=== PATIENT | male | born 1945 | race Caucasian/White ===

== ENCOUNTER 2019-03-16 09:13 | Emergency (ER) | payer MEDICARE, BC ==
[2019-03-16 09:38] VITALS: RESP 14; TEMP 97.7
[2019-03-16] MEDS ORDERED: DIAZEPAM 5 MG TAB PO ONE (10:03)
[2019-03-16] MEDS ORDERED: APAP/HYDROCODONE 325/7.5 TAB PO ONE (10:05)
[2019-03-16] MEDS ORDERED: DIAZEPAM 5 MG TAB ONE (10:06)
[2019-03-16] MEDS ORDERED: APAP/HYDROCODONE 1 EACH TABLET ONE (10:07)
[2019-03-16 11:28] VITALS: PULSE 72; O2SAT 96
[2019-03-16 12:25] VITALS: BP 136/85
== END 2019-03-16 13:37 | disposition home or self-care (01) | DRG 552 ==
LOC: ED 09:13
DX: S32.010A Wedge compression fracture of first lumbar vertebra, initial encounter for closed fracture (principal); M62.830 Muscle spasm of back
CPT/HCPCS: 72131; 99283; A9270-GY

== ENCOUNTER 2019-03-19 08:10 | Emergency (ER) | payer MEDICARE, BC ==
[2019-03-19] MEDS ORDERED: FENTANYL 100MCG/2ML SOL IV ONE (08:42)
[2019-03-19] MEDS ORDERED: ONDANSETRON HCL 4 MG/2 ML SOL IV ONE (08:42)
[2019-03-19] MEDS ORDERED: ONDANSETRON HCL 4 MG/2 ML SOL ONE (08:48)
[2019-03-19] MEDS ORDERED: FENTANYL 100MCG/2ML SOL ONE (08:48)
[2019-03-19 09:02] LABS: BASOPHILS % (AUTO) 1 % (0-3); EOSINOPHILS % (AUTO) 5 % (0-9); HEMATOCRIT 42 % (39-53); HEMOGLOBIN 14.1 gm/dl (13.5-17.7); LYMPHOCYTES % (AUTO) 20.6 % (10-50); MEAN CORPUSCULAR HEMOGLOBIN 31.1 pg (27.0-32.0); MEAN CORPUSCULAR HGB CONC 33.4 gm/dl (32.0-36.0); MEAN CORPUSCULAR VOLUME 93 fL (80-100); MONOCYTES % (AUTO) 7.6 % (0-12); NEUTROPHILS % (AUTO) 65.8 % (37-80)
[2019-03-19 09:17] LABS: ALBUMIN 2.9 gm/dl (3.4-5.0); BILIRUBIN,TOTAL 0.4 mg/dl (0.2-1.0); CALCIUM 8.7 mg/dl (8.5-10.1); CREATININE 0.9 mg/dl (0.80-1.30); POTASSIUM 4.5 mMol/L (3.5-5.1); TOTAL PROTEIN 6.8 gm/dl (6.4-8.2)
[2019-03-19 09:23] LABS: CARBON DIOXIDE 27.9 mEq/L (21-32)
[2019-03-19 10:20] LABS: APPEARANCE,URINE Slightly Cloudy; BILIRUBIN,URINE NEGATIVE (NEGATIVE); COLOR,URINE Yellow; GLUCOSE, URINE (UA) NEGATIVE (NEGATIVE); KETONES,URINE NEGATIVE (NEGATIVE); LEUKOCYTE ESTERASE ,URINE NEGATIVE (NEGATIVE); NITRATE,URINE NEGATIVE (NEGATIVE); OCCULT BLOOD,URINE NEGATIVE (NEG-TRACE); PH,URINE 7.5
[2019-03-19 10:35] LABS: BACTERIA 1+ (< 1+); CRYSTALS 1+ (0-3 AVE/HPF); EPITHELIAL CELLS 0-1 (SQUAMOUS); RBC,URINE 0-1 (0-3AV/HPF); WBC,URINE 0-2 (0-5AV/HPF)
[2019-03-19] MEDS ORDERED: OXYCODONE HYDROCHLORIDE 5 MG TAB PO PRN (10:44)
[2019-03-19] MEDS ORDERED: OXYCODONE HYDROCHLORIDE 5 MG TAB ONE (10:51)
[2019-03-19 11:05] VITALS: BP 154/91; PULSE 76; RESP 18; O2SAT 96
== END 2019-03-19 10:58 | disposition home or self-care (01) | DRG 561 ==
LOC: ED 08:10
DX: S32.019D Unspecified fracture of first lumbar vertebra, subsequent encounter for fracture with routine healing (principal)
CPT/HCPCS: 80053; 81001; 85025; 96374; 96375; 99283; 99284; J2405; J3010; A9270-GY

== ENCOUNTER 2019-04-05 14:00 | Day surgery (SDC) | payer MEDICARE, BC ==
[2019-04-05] MEDS ORDERED: MIDAZOLAM 2 MG/2 ML SOL ONE (14:56)
[2019-04-05] MEDS ORDERED: TRIAMCINOLONE ACETONIDE 40 MG/ML SUS ONE ×2 (14:57→15:14)
[2019-04-05] MEDS ORDERED: BUPIVACAINE HCL 0.25% MPF 30 ML SOL INFIL ONE (14:57)
[2019-04-05] MEDS ORDERED: FENTANYL 100MCG/2ML SOL ONE (14:57)
[2019-04-05 15:35] VITALS: PULSE 84; RESP 18; TEMP 98.1; O2SAT 95
[2019-04-05] MEDS ORDERED: KETOROLAC TROMETHAMINE 30 MG/ML SOL ONE (15:42)
[2019-04-05] MEDS ORDERED: SODIUM CHLORIDE 0.9% FLUSH 10 ML SOL IV ONE (15:45)
[2019-04-05 16:40] VITALS: BP 173/96
== END 2019-04-05 16:32 | disposition home or self-care (01) | DRG 554 ==
LOC: SURG 14:00
PROVIDERS: ATTEND Nurse Anesthetist, Certified Registered
DX: M12.88 Other specific arthropathies, not elsewhere classified, other specified site (principal)
CPT/HCPCS: J1885; J2250; J3010; J3300

== ENCOUNTER 2019-04-19 13:52 | Day surgery (SDC) | payer MEDICARE, BC ==
[2019-04-19] MEDS ORDERED: LIDOCAINE HCL 1% MPF 30 SOL ONE (14:28)
[2019-04-19] MEDS ORDERED: BUPIVACAINE HCL 0.5% MPF 10 ML SOL ONE (14:28)
[2019-04-19 14:53] VITALS: PULSE 80; RESP 18; TEMP 98.4; O2SAT 95
[2019-04-19 15:00] VITALS: BP 147/98
== END 2019-04-19 15:08 | disposition home or self-care (01) | DRG 554 ==
LOC: SURG 13:52
PROVIDERS: ATTEND Nurse Anesthetist, Certified Registered
DX: M12.88 Other specific arthropathies, not elsewhere classified, other specified site (principal)
CPT/HCPCS: J2001